=== PATIENT | male | born 1940 | race Caucasian/White ===

== ENCOUNTER → 2016-08-28 | Outpatient (CLI) | payer MEDICARE, BC ==
[~2016-08-28] MED LIST: ASPI81TA82 PO; ATOR20TA15 PO; DIOV160T3 PO; FISH120014 PO; FISH300C2 PO; GABA300C5 PO; LACTCAP8 PO; LEVO50TA4 PO; LIPI20TA OR; MECL25 PO; MULT1TAB84 PO; PRIL20CA9 PO; PROT40TA PO; TAB-TAB PO; VALS1TAB65 PO
--- NOTE | 2016-08-28 10:19 | RSPPFT ---
DATE OF PROCEDURE: 08/28/16 COMMENTS: VOLUMES DYNAMIC: FVC and FEV1 normal. STATIC: TLC, RV and VTG normal. FLOWS: FEV1% normal; FEF 25-75 mildly reduced. DIFFUSION: Mildly reduced. FLOW VOLUME LOOP: Mild terminal airflow obstruction. IMPRESSION: Mild obstructive ventilatory defect with a mild reduction in diffusion and minimal change post-bronchodilator.
== END ==
LOC: HRSP 07:50
PROVIDERS: ATTEND Internal Medicine
DX: J44.9 Chronic obstructive pulmonary disease, unspecified (principal)
CPT/HCPCS: 94060; 94620; 94726; 94729

== ENCOUNTER → 2016-09-04 | Outpatient (CLI) | payer MEDICARE, BC ==
[2016-09-04 10:51] LABS: APTT (PATIENT) 27.8 SEC (24.3-30.1); HEMATOCRIT 46.9 % (39.0-51.0); MEAN CELL VOLUME 91.9 FL (80.0-100.0); MEAN CORPUSCULAR HEMOGLOBIN 31.2 PG (27.0-34.0); MEAN CORPUSCULAR HGB CONC 33.9 % (32.0-36.0); PLATELET COUNT 129 TH/MM3 (150-450); PROTHROMBIN TIME - PATIENT 11.1 SEC (9.8-11.6); RED CELL DISTRIBUTION WIDTH 14.9 % (11.6-17.2); REVIEW FLAG FINAL; WHITE BLOOD COUNT 5.5 TH/MM3 (4.0-11.0)
[2016-09-04 11:11] LABS: BICARBONATE 28.8 MEQ/L (21.0-32.0); POTASSIUM 4.1 MEQ/L (3.5-5.1)
--- NOTE | 2016-09-05 13:11 | EKG ---
Date Performed: 09/04/2016 Time Performed: 10:15:23 PTAGE: 76 years EKG: Sinus rhythm WITH MARKED SINUS ARRHYTHMIA BORDERLINE ECG Compared to prior tracing no significant change PREVIOUS TRACING : 11/13/1997 07.55 DOCTOR: Jarek Renner Interpretating Date/Time 09/05/2016 13:09:42
== END ==
LOC: CPRE 09:45
PROVIDERS: ATTEND Internal Medicine
DX: Z01.810 Encounter for preprocedural cardiovascular examination (principal); Z01.812 Encounter for preprocedural laboratory examination; R91.1 Solitary pulmonary nodule
CPT/HCPCS: 36415; 80048; 85027; 85610; 85730; 93005

== ENCOUNTER → 2016-09-08 | Day surgery (SDC) | payer MEDICARE, BC ==
--- NOTE | 2016-09-04 10:23 | MB ---
cc: LACEY SANDOVAL,SEBASTIÁN Ibrahim MD DATE OF CONSULTATION 08/25/2016 HISTORY Mr. Jordan is a 76-year-old white male whom I saw on August 25 for an abnormal CAT scan. He had an upper endoscopy in June and since then has had a dry nonproductive cough. No fever, no purulent sputum. He requested a chest x-ray because of the persistence of the cough which was abnormal and then a CT scan was performed on August 21 at [facility]. He has a 2.7 cm spiculated nodule in the left upper lobe, possibly the lingular subsegment very suspicious in appearance. He has a small nodule in the right upper lobe indeterminate. He also has emphysematous changes on the CT. No significant lymphadenopathy is noted. The patient continues to have a mild nonproductive cough that is actually somewhat improved, may have nothing to do with the specific lesion we are seeing since it was after his endoscopy but he certainly had no hemoptysis, chest pain or purulent sputum with this. He does admit to dyspnea on exertion gradually progressive over the last few years. He is a former smoker of one to two packs per day for about 40 years. He quit smoking 10 years ago. PAST MEDICAL HISTORY 1. He had a melanoma on his back five years ago; no evidence of recurrence. 2. He has Crowder's esophagus for which he underwent the recent endoscopy. He has had that for 10 years; that is currently controlled. 3. He has had an arthroscopic surgery on the right knee back in the . 4. A vasectomy in the 1970s. 5. Two back surgeries more recently for vertebral compressions. 6. He also has chronically low platelets, although he says they usually run 100,000-130,000 and he has had no bleeding problems with those with his surgeries. 7. Cholecystectomy. No prior cardiovascular history, diabetes, hypertension or stroke. ALLERGIES ASPIRIN - Does not tolerate large doses of aspirin, maybe because of the platelets. MEDICATIONS 1. Levothyroxine. 2. Omeprazole. 3. Valsartan. 4. A statin. 5. Gabapentin. 6. A multiple vitamin. FAMILY HISTORY Father in a plane crash at 59. Mother of congestive heart failure at 72. Actually he is adopted and those are his adoptive parents. He really has no awareness of his biological family. He does have one son who is a physician, lives in [facility]. He is in good health. SOCIAL HISTORY Originally from [facility]. Was in the [employer] for about 6 years. Worked for the [employer] for 25 or 30 years and is now retired. . Drinks occasional vodka, occasional beer, not more than once a week. He has a dog at home. REVIEW OF SYSTEMS Weight is stable. Appetite is fine. No anginal chest pain or chronic edema. Currently no reflux symptoms related to his Crowder's, no significant musculoskeletal complaints and again, despite the fact he apparently has this low platelet count for sometime, he has never had a bleeding complication related to a procedure on a spontaneous abnormal bleeding. PHYSICAL EXAMINATION VITAL SIGNS: 124/80, pulse 74, temperature is 95, respiratory rate 18, sat 98% on room air. HEENT: Sclerae anicteric. Pharynx is clear. NECK: Neck veins are flat. No adenopathy in the neck or supraclavicular regions. CHEST: Completely clear. No wheezes or rales. No congestion. HEART: Regular rhythm. No harsh murmur. No audible S3. ABDOMEN: Soft, nontender. He does have 1+ pretibial edema. No cyanosis or clubbing but he does have arthritic changes in his hands, probably degenerative. IMAGING STUDIES CT scan is reviewed. He has a left midlung central lesion suspicious for malignancy; it is spiculated. DISCUSSION This lesion, in light of the prior smoking history, is highly suspicious for malignancy. We have discussed the various options and I would like to do pulmonary functions before we proceed with a biopsy. He has agreed to a bronchoscopic approach initially recognizing that we may not have a yield in which case further testing would be necessary. I have discussed the procedure and explained it to him in simple terms so that he understands what it involves. We have discussed potential complications including although not limited to anesthetic problems, bleeding or pneumothorax. Again, if the procedure was nondiagnostic, we would need to proceed but I think this is the best first step given the fairly proximal location of the lesion. Further diagnostic and/or therapeutic intervention will depend on the results of this study. R. Lacey Sandoval MD RSW/MAYLIN /11:05 AM /10:21 AM
[~2016-09-08] VITALS: Ht 175.3 cm; Wt 101.0 kg
[~2016-09-08] MED LIST changes: +*RESP: ALBUTEROL 2.5 MG/3 ML NEB (PRN) PERIprocedural Use ONLY NEB ONE; -ASPI81TA82 PO; +DEXAMETHASONE SOD PHOS 4 MG/ML VIAL ONE; -DIOV160T3 PO; +DO NOT ADM ANY ANTICOAGULANT DRUGS XX PRN; +EPINEPHrine HCL (1:1000) 1 MG/ML VIAL ONE; +FAMOTIDINE 20 MG/2 ML VIAL ONE; -FISH300C2 PO; +INSULIN HUMAN REGULAR 1,000 UNITS/10 ML VIAL SQ PRN; +LACTATED RINGER'S 1000 ML IV SCH; +LIDOCAINE HCL 2% 50 ML VIAL ONE; +LIDOCAINE HCL 4% PF 5 ML AMP ONE; +LIDOCAINE VISCOUS 2% SOLN 15 ML UDC ONE; -LIPI20TA OR; -MECL25 PO; +METOPROLOL TARTRATE 25 MG TAB PO PRN; +MIDAZOLAM HCL 2 MG/2 ML VIAL ONE; +PROPOFOL 200 MG/20 ML AMP IV ONE; -PROT40TA PO; +RESP: ALBUTEROL 2.5 MG/3 ML NEB (PRN) NEB; +RESP: ALBUTEROL CONC 2.5 MG/0.5 ML NEB INH SCH; +RESP: LIDOCAINE HCL 4% PF 5 ML NEB NEB SCH; +SODIUM CHLOR 0.9% 1000 ML INJ 1,000 ML IV SCH; +SODIUM CHLORID 0.9% 500 ML IV SCH; -TAB-TAB PO
[2016-09-08 13:12] VITALS: BP 142/77; PULSE 73; RESP 18; TEMP 98.9; O2SAT 96
--- NOTE | 2016-09-08 16:21 | RADRPT ---
EXAM DATE/TIME: 09/08/2016 16:00 [facility] COMPARISON: No previous studies available for comparison. INDICATIONS : Status post brochoscopy. MEDICAL HISTORY : None. SURGICAL HISTORY : None. ENCOUNTER: Initial ACUITY: 1 day PAIN SCORE: 10 LOCATION: Bilateral chest FINDINGS: A single AP portable view of the chest was obtained and demonstrates mild cardiomegaly. A hazy mild o pacity at both lung bases. Chronic appearing interstitial change. There is no effusion. Bony thorax i s intact overlying electrocardiogram leads. Atherosclerotic changes are present in the aorta. There i s no evidence of pneumothorax. CONCLUSION: 1. No evidence of pneumothorax status post bronchoscopy. 2. Patchy opacity at both lung bases. 3. Chronic appearing interstitial change. Homero Real MD on September 08, 2016 at 16:18 Board Certified Radiologist. This report was verified electronically.
[2016-09-08 17:10] VITALS: BP 146/88; PULSE 74; RESP 18; TEMP 97.7; O2SAT 97
--- NOTE | 2016-09-09 23:30 | MP ---
cc: SEBASTIÁN RODRIGUEZ MD, R. STEVEN M.D. DATE OF SURGERY: 09/08/2016 PROCEDURE: Bronchoscopy INDICATIONS: Left lingular mass. PROCEDURE NOTE: After informed consent was obtained, the patient underwent diagnostic bronchoscopy with LMA anesthesia. Examination of the larynx was unremarkable. Examination of the trachea down to the mainstem bronchi was unremarkable. Examination of the right main stem bronchus, right upper, middle and lower lobe orifices was entirely unremarkable without endobronchial pathology. Examination of the left main stem bronchus down to the takeoff of the left ___ lobe was normal. Examination of the left lower lobe and its subsegments were normal. No endobronchial pathology. Examination of the left upper lobe and the lingula entirely unremarkable. The subsegments of the lingula were carefully inspected and no endobronchial pathology was noted. Using fluoroscopic guidance the lesion could not be absolutely clearly identified. It was seen to overlie both the superior and inferior limbs of the lingula so this area was washed extensively submitted for cultures and cytology. Several bronchial brushings were then obtained again with fluoroscopic guidance to the subsegments of the lingula and submitted for cytology. SUMMARY This is a normal endoscopic exam. No visible lesion was noted. Washings and multiple brushings were submitted for cytology and culture. He tolerated the procedure well without apparent complication. RMD BRONSON Navarro/MAYTE /2:54 PM /11:23 PM
== END | disposition home or self-care (01) ==
LOC: HSDC 11:47
PROVIDERS: ATTEND Internal Medicine
DX: R91.8 Other nonspecific abnormal finding of lung field (principal)
CPT/HCPCS: 00520; 31622; 71010; 76000; 87015; 87070; 87102; 87116; 87205; 87206; 88112; 88305; 94664; J0171; J1100; J2250; J7120; J7613

== ENCOUNTER → 2016-09-21 | Outpatient (CLI) | payer MEDICARE, BC ==
[~2016-09-21] MED LIST changes: -*RESP: ALBUTEROL 2.5 MG/3 ML NEB (PRN) PERIprocedural Use ONLY NEB ONE; -DEXAMETHASONE SOD PHOS 4 MG/ML VIAL ONE; -DO NOT ADM ANY ANTICOAGULANT DRUGS XX PRN; -EPINEPHrine HCL (1:1000) 1 MG/ML VIAL ONE; -FAMOTIDINE 20 MG/2 ML VIAL ONE; -INSULIN HUMAN REGULAR 1,000 UNITS/10 ML VIAL SQ PRN; -LACTATED RINGER'S 1000 ML IV SCH; -LIDOCAINE HCL 2% 50 ML VIAL ONE; -LIDOCAINE HCL 4% PF 5 ML AMP ONE; -LIDOCAINE VISCOUS 2% SOLN 15 ML UDC ONE; -METOPROLOL TARTRATE 25 MG TAB PO PRN; -MIDAZOLAM HCL 2 MG/2 ML VIAL ONE; -PROPOFOL 200 MG/20 ML AMP IV ONE; -RESP: ALBUTEROL 2.5 MG/3 ML NEB (PRN) NEB; -RESP: ALBUTEROL CONC 2.5 MG/0.5 ML NEB INH SCH; -RESP: LIDOCAINE HCL 4% PF 5 ML NEB NEB SCH; -SODIUM CHLOR 0.9% 1000 ML INJ 1,000 ML IV SCH; -SODIUM CHLORID 0.9% 500 ML IV SCH
[2016-09-21 10:25] LABS: AUTOMATED NEUTROPHIL # 4.1 TH/MM3 (1.8-7.7); BASOPHIL % 0.5 % (0.0-2.0); EOSINOPHIL # 0.2 TH/MM3 (0-0.4); HEMATOCRIT 47.7 % (39.0-51.0); HEMO FLAGS DIFF FINAL; LYMPH % 25.5 % (9.0-44.0); LYMPHOCYTE # 1.7 TH/MM3 (1.0-4.8); MONO % 8.5 % (0.0-8.0); NEUT % 62.5 % (16.0-70.0); PLATELET COUNT 137 TH/MM3 (150-450); RED BLOOD COUNT 5.24 MIL/MM3 (4.50-5.90); RED CELL DISTRIBUTION WIDTH 14.6 % (11.6-17.2); WHITE BLOOD COUNT 6.6 TH/MM3 (4.0-11.0)
== END ==
LOC: CPRE 09:18
PROVIDERS: ATTEND Internal Medicine
DX: Z01.812 Encounter for preprocedural laboratory examination (principal); R91.1 Solitary pulmonary nodule
CPT/HCPCS: 36415; 85025

== ENCOUNTER 2016-09-22 11:19 | Day surgery (SDC) | payer MEDICARE, BC ==
--- NOTE | 2016-09-18 08:26 | MB ---
cc: SEBASTIÁN RODRIGUEZ MD DATE OF CONSULTATION: 09/17/2016 REASON FOR CONSULTATION: This is for an outpatient bronchoscopy being scheduled for next Wednesday. HISTORY Mr. Jordan is a 76-year-old white male whom I first saw on August [address] scan. He has a 2-3 cm irregular lesion in the lingula that appears to be malignant. He has over an 80 pack-year smoking history although he quit in 2007 and underlying emphysema, although his pulmonary functions are actually only mildly reduced. On September 08 I bronchoscoped him but was unable to visualize this abnormality. We did blind brushings and washings from the left upper lobe, but they were all negative. Cytologies were negative and all cultures were negative. I saw him back in the office and we reviewed the available options. Since his original bronchoscopy. We have new technology using a navigational system and ultrasound which will very likely increase the yield for biopsying this lesion. As I told him I am concerned about this being malignant. We either need to consider repeat bronchoscopy or surgery. However, he also has a small right upper lobe lesion and if in fact he goes to surgery. I would certainly consider a PET CT before that was done. Currently no new symptoms, a very mild cough but no progressive dyspnea. No hemoptysis. No chest pain. PAST MEDICAL HISTORY 1. Had a melanoma on his back 5 years ago certainly no local recurrence of that. 2. He has a history of Crowder's esophagus currently asymptomatic. 3. He has had arthroscopic surgery on the right knee 4. A vasectomy in the 1970s 5. Surgeries for vertebral compression fractures as well. 6. Platelets are chronically low but above 100,000. He has had no bleeding history and had no bleeding related to the brush biopsies at the previous bronchoscopy. 7. Also a prior cholecystectomy. 8. No significant prior cardiovascular disease. ALLERGIES Intolerant of ASPIRIN which he believes is probably due to the fact that he has relatively low platelet counts. MEDICATIONS 1. Thyroid 2. Omeprazole 3. Valsartan 4. Atorvastatin 5. Gabapentin 6. Multiple vitamin FAMILY HISTORY: Not changed. SOCIAL HISTORY: Has not changed. Rarely drinks alcohol. PHYSICAL EXAMINATION: VITAL SIGNS: 97 degrees, blood pressure 130/76, pulse 68, Respirations 18, sat 92% on room air. HEAD, EYES, EARS, NOSE, AND THROAT: sclerae anicteric. Pharynx is clear. NECK: Neck veins are flat. CHEST: The chest is entirely clear. No wheezes or rales. HEART: Regular rhythm, no harsh murmur, no edema or cyanosis. ASSESSMENT AND PLAN: Mr. Jordan has a spiculated nodular density in the left upper lobe and a very small lesion in the right upper lobe more nondescript. The lesion in the left certainly is highly suspicious for malignancy. After thoroughly reviewing the options with him. He elects to proceed with a second bronchoscopy, utilizing newer technology which should increase our yield on a definitive diagnosis. Unfortunately as I explained to him today it is not 100% and we may not get an answer in which case I would consider PET CT and then possible surgery. We have discussed the procedure which he is familiar with from two weeks ago potential complications including bleeding or pneumothorax, less likely anesthetic complication. After thoroughly reviewing this he agrees to proceed. Further diagnostic and/or therapeutic intervention will depend on the results of this study. R. MD BRONSON Guzman/peri /3:51 PM /8:25 AM
[~2016-09-22] VITALS: Ht 176.5 cm; Wt 100.9 kg
[~2016-09-22 11:19] MED LIST changes: +NEOSTIGMINE 3 MG/3 ML SYR IV ONE; +PHENYLEPH/NS 1000 MCG/10 ML SYR IV ONE; +PROPOFOL 200 MG/20 ML AMP IV ONE
[2016-09-22 12:08] VITALS: BP 155/81; PULSE 59; RESP 20; TEMP 98.2; O2SAT 97
[2016-09-22] MEDS ORDERED: LACTATED RINGER'S 1000 ML IV SCH (12:30)
[2016-09-22] MEDS ORDERED: SODIUM CHLORID 0.9% 500 ML IV SCH (12:30)
[2016-09-22] MEDS ORDERED: METOPROLOL TARTRATE 25 MG TAB PO PRN (12:30)
[2016-09-22] MEDS ORDERED: SODIUM CHLOR 0.9% 1000 ML INJ 1,000 ML IV SCH (12:30)
[2016-09-22] MEDS ORDERED: INSULIN HUMAN REGULAR 1,000 UNITS/10 ML VIAL SQ PRN (12:30)
[2016-09-22] MEDS ORDERED: RESP: ALBUTEROL 2.5 MG/3 ML NEB (SCH) NEB (13:15)
[2016-09-22] MEDS ORDERED: RESP: LIDOCAINE HCL 4% PF 5 ML NEB NEB SCH (13:15)
[2016-09-22] MEDS ORDERED: fentaNYL CITRATE 250 MCG/5 ML AMP ONE (14:29)
--- NOTE | 2016-09-22 14:45 | RADRPT ---
EXAM DATE/TIME: 09/22/2016 13:39 [facility] COMPARISON: No previous studies available for comparison. INDICATIONS : Pre op to bronchoscopy. RADIATION DOSE: 5.85 CTDIvol (mGy) MEDICAL HISTORY : Cardiovascular disease. Hypertension. Skin cancer. Barretts esophagus. SURGICAL HISTORY : Cholecystectomy. ENCOUNTER: Initial ACUITY: 1 day PAIN SCALE: 0/10 LOCATION: chest TECHNIQUE: Volumetric scanning of the chest was performed using inspiration and expiration protocols. The study is performed using fiduciary markers for virtual bronchoscopy. Using automated exposure control and adjustment of the mA and/or kV according to patient size, radiation dose was kept as low as reasonabl y achievable to obtain optimal diagnostic quality images. FINDINGS: LUNGS: There is spiculated nodule in the lingula measuring 2.0 x 2.7 cm. There is a 1.3 x 1.3 cm nodule in t he lateral right upper lobe. Severe emphysematous changes. Bullous changes in the upper lobes. PLEURAE: There is no pleural thickening or pleural effusion. MEDIASTINUM: The heart and great vessels demonstrate no acute abnormality. There is no mediastinal or hilar lymph adenopathy. AXILLAE: Within normal limits. No lymphadenopathy. MUSCULOSKELETAL: Within normal limits for patient age. MISCELLANEOUS: The visualized upper abdominal organs demonstrate no acute abnormality. CONCLUSION: 1. Spiculated nodule in the lingula measuring 2.0 x 2.7 cm. 2. Nodule in the lateral right upper lobe measures 1.3 x 1.3 cm. 3. Severe emphysema without infiltrate. Ramez Gaitan MD on September 22, 2016 at 14:31 Board Certified Radiologist. This report was verified electronically.
[2016-09-22] MEDS ORDERED: RESP: ALBUTEROL 2.5 MG/3 ML NEB (PRN) NEB (16:00)
[2016-09-22] MEDS ORDERED: DO NOT ADM ANY ANTICOAGULANT DRUGS XX PRN ×2 (16:06→16:45)
--- NOTE | 2016-09-22 16:44 | RADRPT ---
EXAM DATE/TIME: 09/22/2016 16:12 [facility] COMPARISON: CHEST SINGLE AP, September 08, 2016, 16:00. INDICATIONS : Post Bronchoscopy MEDICAL HISTORY : None. SURGICAL HISTORY : Bronchoscopy ENCOUNTER: Initial ACUITY: 1 day PAIN SCORE: 0/10 LOCATION: Bilateral chest FINDINGS: A single view of the chest demonstrates persistent diffuse interstitial lung markings throughout the lungs. Rounded density overlies the left infrahilar region unchanged. The cardiomediastinal contours are unremarkable. Osseous structures are intact. CONCLUSION: Diffuse interstitial lung disease with a rounded density overlying the lower aspect of the left hilum . Sam Alegria MD on September 22, 2016 at 16:41 Board Certified Radiologist. This report was verified electronically.
[2016-09-22 17:00] VITALS: BP 127/64; PULSE 68; RESP 18; TEMP 97.6; O2SAT 90
[2016-09-22 17:15] VITALS: BP 130/61; PULSE 68; RESP 16; O2SAT 92
[2016-09-22 17:45] VITALS: BP 116/80; PULSE 68; RESP 18; O2SAT 92
--- NOTE | 2016-09-22 23:28 | MP ---
cc: Tenzin SANDOVAL M.D. DATE OF SURGERY 09/22/16 PROCEDURE Bronchoscopy INDICATION Left perihilar mass. PROCEDURE IN DETAIL After informed consent was obtained, the patient underwent diagnostic bronchoscopy with general anesthesia. Examination of the mid to distal trachea was normal. Examination of the right upper lobe, right middle and lower lobes revealed some scattered secretions but otherwise clear. No endobronchial pathology. Examination of the left main stem bronchus, left upper lobe lingula and lower lobe orifices revealed no specific endobronchial pathology. Utilizing navigational direction, the lesion was identified in the inferior segment of the left lower lobe. Once the lesion had been specifically located, washings, several brushings and three transbronchial biopsies were obtained from the area of the lesion. These were submitted for culture, cytology and pathology. There was minimal bleeding during the procedure and none at the end of the procedure. He tolerated the procedure well without apparent complication and a chest x-ray is pending at this time. MD BRONSON Cohen/ /5:09 PM /11:18 PM
== END 2016-09-22 18:06 | disposition home or self-care (01) ==
LOC: HSDC 11:19 → HRIP 12:20 → HSDC 18:06
PROVIDERS: ATTEND Internal Medicine
DX: C34.12 Malignant neoplasm of upper lobe, left bronchus or lung (principal); R91.1 Solitary pulmonary nodule; I10 Essential (primary) hypertension; I25.10 Atherosclerotic heart disease of native coronary artery without angina pectoris; C34.10 Malignant neoplasm of upper lobe, unspecified bronchus or lung; J43.9 Emphysema, unspecified; Z85.820 Personal history of malignant melanoma of skin; Z87.891 Personal history of nicotine dependence; Z90.49 Acquired absence of other specified parts of digestive tract
CPT/HCPCS: 00520; 31623; 31628; 71010; 71250; 76000; 87015; 87070; 87102; 87116; 87205; 87206; 88112; 88305; 88341; 88342; 94664; J2370; J2710; J3010; J7613; 88307

== ENCOUNTER → 2016-10-15 | Outpatient (CLI) | payer MEDICARE, BC ==
[~2016-10-15] MED LIST changes: -NEOSTIGMINE 3 MG/3 ML SYR IV ONE; -PHENYLEPH/NS 1000 MCG/10 ML SYR IV ONE; -PROPOFOL 200 MG/20 ML AMP IV ONE
[2016-10-15 13:13] LABS: BASOPHIL % 0.4 % (0.0-2.0); EOSINOPHIL # 0.3 TH/MM3 (0-0.4); EOSINOPHIL % 3.6 % (0.0-4.0); HEMATOCRIT 47.1 % (39.0-51.0); HEMO FLAGS DIFF FINAL; LYMPH % 31.2 % (9.0-44.0); LYMPHOCYTE # 2.3 TH/MM3 (1.0-4.8); MEAN CELL VOLUME 92.2 FL (80.0-100.0); MEAN CORPUSCULAR HEMOGLOBIN 30.2 PG (27.0-34.0); MEAN CORPUSCULAR HGB CONC 32.8 % (32.0-36.0); MONO % 10.5 % (0.0-8.0); NEUT % 54.3 % (16.0-70.0); PLATELET COUNT 134 TH/MM3 (150-450); RED BLOOD COUNT 5.11 MIL/MM3 (4.50-5.90); RED CELL DISTRIBUTION WIDTH 14.3 % (11.6-17.2); WHITE BLOOD COUNT 7.4 TH/MM3 (4.0-11.0)
[2016-10-15 13:23] LABS: APTT (PATIENT) 28.4 SEC (24.3-30.1); PROTHROMBIN TIME - PATIENT 11.3 SEC (9.8-11.6)
== END ==
LOC: CLAB 12:32
PROVIDERS: ATTEND Internal Medicine
DX: C34.90 Malignant neoplasm of unspecified part of unspecified bronchus or lung (principal); R91.1 Solitary pulmonary nodule
CPT/HCPCS: 36415; 85025; 85610; 85730

== ENCOUNTER 2016-10-20 10:12 | Day surgery (SDC) | payer MEDICARE, BC ==
[~2016-10-20] VITALS: Ht 177.8 cm; Wt 100.9 kg
[2016-10-20] VITALS (7 sets, daily range): BP systolic 134–163; BP diastolic 68–92; PULSE 60–67; RESP 18–20; TEMP 97.6–97.7; O2SAT 92–97
[2016-10-20] MEDS ORDERED: SODIUM CHLOR 0.9% 1000 ML IV SCH (11:00)
[2016-10-20] MEDS ORDERED: LIDOCAINE 1%/EPINEPHrine 1:100,000 SOLN 20 ML VIAL ONE (12:15)
[2016-10-20] MEDS ORDERED: fentaNYL CITRATE 250 MCG/5 ML AMP ONE (12:25)
[2016-10-20] MEDS ORDERED: MIDAZOLAM HCL 5 MG/5 ML VIAL ONE (12:25)
--- NOTE | 2016-10-20 14:39 | RADRPT ---
EXAM DATE/TIME: 10/20/2016 13:58 [facility] COMPARISON: CT NEEDLE BIOPSY LUNG, RIGHT, October 20, 2016, 12:47. CHEST SINGLE AP, September 22, 2016, 16:12. INDICATIONS : Post lung biopsy. MEDICAL HISTORY : Hypertension. Carcinoma, lung. SURGICAL HISTORY : Previous lung biopsy. ENCOUNTER: Initial ACUITY: 1 day PAIN SCORE: 0/10 LOCATION: Right chest FINDINGS: A single portable expiration view the chest shows no pneumothorax. No effusion. Chronic interstitial changes noted. Nodularity involving the lateral right upper lobe again noted. Heart is normal in size . Scoliotic and degenerative spine. CONCLUSION: No pneumothorax following lung biopsy. Deny Ferrell Jr., MD on October 20, 2016 at 14:36 Board Certified Radiologist. This report was verified electronically.
[2016-10-20] MEDS ORDERED: oxyCODONE/ACETAMINOPHEN 5 MG/325 MG TAB PO PRN (15:00)
--- NOTE | 2016-10-20 16:11 | RADRPT ---
EXAM DATE/TIME: 10/20/2016 12:47 [facility] COMPARISON: No previous studies available for comparison. INDICATIONS : Right lung mass SEDATION TIME: 30 minutes BIOPSY SITE: Right lung MEDICATION(S): 1.) 4 mg midazolam (Versed) IV 2.) 200 mcg fentanyl (Sublimaze) IV DEVICE(S): 1.) 18 gauge Moody blunt needle 2.) 20 gauge Temno core biopsy needle MEDICAL HISTORY : Carcinoma, lung. SURGICAL HISTORY : Cholecystectomy ENCOUNTER: Initial ACUITY: 1 day PAIN SCORE: 0/10 LOCATION: Right chest A total of four core specimen(s) were obtained and sent to the laboratory for pathologic evaluation. PROCEDURE: 1. CT guided lung biopsy. 2. Conscious sedation with continuous EKG and oximetry monitoring. 3. EKG and oximetry remained stable throughout the procedure. Prior to the procedure informed consent was obtained. Any appropriate prior imaging studies were rev iewed. Using automated exposure control and adjustment of the mA and/or kV according to patient size, radiation dose was kept as low as reasonably achievable to obtain optimal diagnostic quality images. The site was prepped in a sterile fashion. Full sterile technique was used, including cap, mask, tera rile gloves and gown and a large sterile sheet. Hand hygiene and 2% chlorhexidine and/or betadine/al cohol prep was utilized per protocol for cutaneous antisepsis. The skin and subcutaneous tissues wer e infiltrated with local anesthetic solution. With CT guidance the previously identified target was localized. Biopsy was performed using the presc ribed needle as above. Adequate hemostasis was obtained with compression at the puncture site. Follow-up CT scan reveals no pneumothorax. Conscious sedation was performed with the prescribed dosages and duration as above in the presence of an independent trained radiology nurse to assist in the monitoring of the patient. EKG and oximetry remained stable throughout the procedure. The patient tolerated the procedure well and there were no complications. The patient was sent to Radiology Outpatient Unit in stable condition. CONCLUSION: Uncomplicated CT guided biopsy. Eleazar Pineda MD on October 20, 2016 at 16:09 Board Certified Radiologist. This report was verified electronically.
--- NOTE | 2016-10-20 16:48 | RADRPT ---
EXAM DATE/TIME: 10/20/2016 15:41 [facility] COMPARISON: CHEST EXPIRATION ONLY, October 20, 2016, 13:58. INDICATIONS : Evalute for pneumothorax. Post right lung biopsy. MEDICAL HISTORY : Cardiovascular disease. Hypertension. Skin cancer. Barretts esophagus. SURGICAL HISTORY : Cholecystectomy. ENCOUNTER: Subsequent ACUITY: 1 day PAIN SCORE: 0/10 LOCATION: Bilateral chest FINDINGS: Single frontal expiratory view of the chest. Patchy opacity of the left lung base unchanged. No evide nce of pneumothorax. CONCLUSION: No evidence of pneumothorax. Nahid Bhardwaj MD on October 20, 2016 at 16:46 Board Certified Radiologist. This report was verified electronically.
== END 2016-10-20 16:35 | disposition home or self-care (01) ==
LOC: HRAD 10:12 → HRIP 10:14 → HRAD 16:35
PROVIDERS: ATTEND Internal Medicine
DX: C34.92 Malignant neoplasm of unspecified part of left bronchus or lung (principal); R91.1 Solitary pulmonary nodule; I10 Essential (primary) hypertension; Z85.828 Personal history of other malignant neoplasm of skin
CPT/HCPCS: 32405; 71010; 77012; 88305; 88341; 88342; J2250; J3010

== ENCOUNTER 2017-01-27 11:58 | Inpatient (IN) | payer MEDICARE, BC ==
[~2017-01-27] VITALS: Ht 177.8 cm; Wt 100.5 kg
[2017-01-27 12:00] VITALS: BP 136/74; PULSE 84; RESP 18; TEMP 98.9; O2SAT 93
--- NOTE | 2017-01-27 12:13 | PD ---
Physical Exam Time Seen by Provider: 12:09 Narrative Pt presents to the ED for evaluation of cough for 3 weeks and two episodes of severe SOB with presyncope this morning. Hx of lung cancer. Significant SOB with exertion started today. Hx of radiation therapy, no chemotherapy. Denies fever or pain. Denies any hx of heart disease. States had a nuclear medicine stress test recently that was normal. Denies hx of PE or DVT, not on any anticoagulation. VSS. Oxygen saturation is a little low at 93%. Awaiting bed placement. Data Data Last Documented VS Vital Signs Date Time Temp Pulse Resp B/P Pulse Ox O2 Delivery O2 Flow Rate FiO2 01/27/17 12:00 98.9 84 18 136/74 93 Room Air MDM Supervised Visit with HANANE: Carmenza Silverio Jan 27, 2017 12:13
--- NOTE | 2017-01-27 13:06 | PD ---
HPI Chief Complaint: Respiratory Symptoms Time Seen by Provider: 13:06 Travel History International Travel<30 days: No Contact w/Intl Traveler<30days: No Traveled to known affect area: No History of Present Illness HPI 76 YO M with history of non small cell lung cancer presents to the ED for evaluation of shortness of breath. Patient states that he was working in the car's this morning when he had an episode where he felt as if he could not move air in or out of the lungs. He states that he sat down and this resolved but reoccurred just after resolution. He estimates the entire episode lasted 3 minutes. He endorses one-month history of nonproductive cough. States that he gets dizzy with episodes of coughing. He denies fever, chills, chest pain, palpitations, diaphoresis, nausea, vomiting, dysuria, edema of the lower extremities. The patient does not use oxygen at home. He states that he is undergone 2 rounds of radiation. He is followed by Dr. Ben Saldivar. PFSH Past Medical History Cancer: Yes (MELANOMA SKIN) Cardiovascular Problems: Yes (MINOR BLOCKAGE LEFT CAROTID) Diabetes: No Endocrine: No Genitourinary: No Hepatitis: No Hiatal Hernia: No Hypertension: Yes Immune Disorder: No Musculoskeletal: No Neurologic: Yes (PERMANENT NERVE DAMAGE RIGHT FOOT FROM WOUND) Psychiatric: Yes (ADHD) Reproductive: No Respiratory: Yes (LESION LEFT MID LUNG) Immunizations Current: Yes Thyroid Disease: Yes Triglycerides - High: Yes Past Surgical History Abdominal Surgery: Yes (CHOLECYSTECTOMY) AICD: No Cardiac Surgery: No Ear Surgery: No Endocrine Surgery: No Eye Surgery: No Genitourinary Surgery: Yes (VASECTOMY) Gynecologic Surgery: No Joint Replacement: No Oral Surgery: No Pacemaker: No Thoracic Surgery: No Other Surgery: Yes (VASECTOMY,KNEE,BACK) Social History Alcohol Use: Yes Tobacco Use: No Substance Use: No Allergies-Medications (Allergen,Severity, Reaction): Coded Allergies: Aspirin (Verified Allergy, Intermediate, NOSE BLEED, 01/27/17) CAN TAKE 81MG BUT CANNOT TAKE 325MG Reported Meds & Prescriptions Reported Meds & Active Scripts Active Reported Levothyroxine (Levothyroxine Sodium) 50 Mcg Tab 50 Mcg PO DAILY Valsartan 160 Mg Tab 160 Mg PO DAILY Probiotic (Lactobacillus Acidophilus) 1 Cap Cap 1 Cap PO DAILY Prilosec (Omeprazole) 20 Mg Cap 20 Mg PO DAILY Gabapentin 300 Mg Cap 300 Mg PO TID Fish Oil ([place]-3 Fatty Acids) 1,200 Mg Cap 1,200 Mg PO DAILY Multivitamin Adults (Multiple Vitamins W/ Minerals) 1 Tab 1 Tab PO DAILY Atorvastatin (Atorvastatin Calcium) 20 Mg Tab 20 Mg PO HS Review of Systems Except as stated in HPI: all other systems reviewed are Neg Physical Exam Narrative GENERAL: Well-nourished, well-developed white male in no acute distress.. SKIN: Focused skin assessment warm/dry. There is 3-4 cm abrasion on the anterior aspect of the right thigh. HEAD: Normocephalic. EYES: No scleral icterus. No injection or drainage. NECK: Supple, trachea midline. No JVD or lymphadenopathy. CARDIOVASCULAR: Regular rate and rhythm without murmurs, gallops, or rubs. RESPIRATORY: Breath sounds clear and equal bilaterally. No accessory muscle use. GASTROINTESTINAL: Abdomen soft, non-tender, nondistended. Active bowel sounds. MUSCULOSKELETAL: No cyanosis. Trace edema in the bilateral lower extremities. Homans sign negative bilaterally. BACK: Nontender without obvious deformity. No CVA tenderness. Data Data Last Documented VS Vital Signs Date Time Temp Pulse Resp B/P Pulse Ox O2 Delivery O2 Flow Rate FiO2 01/27/17 15:00 79 15 115/68 97 Nasal Cannula 2 01/27/17 12:00 98.9 Orders Complete Blood Count With Diff (01/27/17 13:15) Comprehensive Metabolic Panel (01/27/17 13:15) B-Type Natriuretic Peptide (01/27/17 13:15) D-Dimer (01/27/17 13:15) Act Partial Throm Time (Ptt) (01/27/17 13:15) Prothrombin Time / Inr (Pt) (01/27/17 13:15) Ckmb (Isoenzyme) Profile (01/27/17 13:15) Troponin I (01/27/17 13:15) Urinalysis - C+S If Indicated (01/27/17 13:15) Iv Access Insert/Monitor (01/27/17 13:15) Ecg Monitoring (01/27/17 13:15) Oximetry (01/27/17 13:15) Chest, Single Ap (01/27/17 13:15) Sodium Chloride 0.9% Flush (Ns Flush) (01/27/17 13:15) Piperacil-Tazo 4.5 Gm Premix (Zosyn 4.5 (01/27/17 14:15) Azithromycin Inj (Zithromax Inj) (01/27/17 14:15) CKMB (01/27/17 13:10) CKMB% (01/27/17 13:10) Ct Pulmonary Angiogram (01/27/17 14:16) Oxygen Administration (01/27/17 14:23) Electrocardiogram (01/27/17 14:26) Admit Order (Ed Use Only) (01/27/17 15:21) Labs Laboratory Tests Test 01/27/17 01/27/17 13:10 13:35 White Blood Count 6.0 TH/MM3 Red Blood Count 4.83 MIL/MM3 Hemoglobin 14.8 GM/DL Hematocrit 44.2 % Mean Corpuscular Volume 91.6 FL Mean Corpuscular Hemoglobin 30.6 PG Mean Corpuscular Hemoglobin 33.4 % Concent Red Cell Distribution Width 14.7 % Platelet Count 139 TH/MM3 Mean Platelet Volume 8.2 FL Neutrophils (%) (Auto) 64.3 % Lymphocytes (%) (Auto) 12.5 % Monocytes (%) (Auto) 16.2 % Eosinophils (%) (Auto) 6.4 % Basophils (%) (Auto) 0.6 % Neutrophils # (Auto) 3.8 TH/MM3 Lymphocytes # (Auto) 0.7 TH/MM3 Monocytes # (Auto) 1.0 TH/MM3 Eosinophils # (Auto) 0.4 TH/MM3 Basophils # (Auto) 0.0 TH/MM3 CBC Comment DIFF FINAL Differential Comment Prothrombin Time 11.2 SEC Prothromb Time International 1.0 RATIO Ratio Activated Partial 28.7 SEC Thromboplast Time D-Dimer Quantitative (PE/DVT) 0.65 MG/L FEU Sodium Level 140 MEQ/L Potassium Level 4.7 MEQ/L Chloride Level 106 MEQ/L Carbon Dioxide Level 28.2 MEQ/L Anion Gap 6 MEQ/L Blood Urea Nitrogen 13 MG/DL Creatinine 0.92 MG/DL Estimat Glomerular Filtration 80 ML/MIN Rate Random Glucose 96 MG/DL Calcium Level 10.3 MG/DL Total Bilirubin 0.8 MG/DL Aspartate Amino Transf 37 U/L (AST/SGOT) Alanine Aminotransferase 27 U/L (ALT/SGPT) Alkaline Phosphatase 132 U/L Total Creatine Kinase 109 U/L Creatine Kinase MB 1.4 NG/ML Troponin I LESS THAN 0.02 NG/ML B-Type Natriuretic Peptide 13 PG/ML Total Protein 6.9 GM/DL Albumin 3.2 GM/DL Urine Color YELLOW Urine Turbidity CLEAR Urine pH 6.5 Urine Specific [place] 1.015 Urine Protein NEG mg/dL Urine Glucose (UA) NEG mg/dL Urine Ketones NEG mg/dL Urine Occult Blood NEG Urine Nitrite NEG Urine Bilirubin NEG Urine Urobilinogen 2.0 MG/DL Urine Leukocyte Esterase NEG Urine RBC LESS THAN 1 /hpf Urine WBC 1 /hpf Urine Squamous Epithelial 2 /hpf Cells Urine Mucus FEW /lpf Microscopic Urinalysis Comment CULT NOT INDICATED MDM Medical Decision Making Medical Screen Exam Complete: Yes Emergency Medical Condition: Yes Differential Diagnosis Pneumonia versus PE versus CHF versus small cell lung CA versus other Narrative Course 76 YO M with history of non small cell lung cancer presents to the ED for evaluation of shortness of breath. Patient endorses an episode lasting approximately 3 minutes today where he felt as if he couldn't move air in or out of the lungs. Also complains of one-month history of nonproductive cough with associated dizziness. He denies fever, chills, chest pain, palpitations, diaphoresis, nausea, vomiting, dysuria, edema of the lower extremities. The patient does not use oxygen at home. He has undergone 2 rounds of radiation. Followed by Dr. Ben Saldivar. Vitals reviewed. O2 sat 93%, drops to 87% with coughing fits. Physical exam reveals a nontoxic-appearing white male in no acute distress. Chest CTAB. Trace edema in the bilateral lower extremities. Homans sign negative bilaterally. Patient was placed on 2 L O2 by nasal cannula. CBC: WBC 6.0, hemoglobin 14.8. CBC: Unremarkable. UA: No culture indicated. INR 1.0. BMP: 13 D-dimer 0.65. Cardiac enzymes negative 1. CXR: Patchy infiltrate in the left lower lobe, suspicious for pneumonia per radiology read. EKG: Rate 71, sinus rhythm. Normal intervals. Normal axis. No ST changes. Reviewed by Dr. Perez. CTA: Pending Patient was administered Zosyn and azithromycin IV. Discussed the results of the workup with the patient and the need for admission to the hospital secondary to pneumonia and hypoxia. The patient is agreeable to the plan. Call placed to [facility]. I spoke with Dr. Carmen who agrees to accept the patient to the medicine service. Please see medicine notes for disposition. Emmie Cano Jan 27, 2017 13:06
[2017-01-27] MEDS ORDERED: SODIUM CHLORIDE 0.9% FLUSH 10 ML FLUSH IVF PRN (13:15)
[2017-01-27 13:51] LABS: AUTOMATED NEUTROPHIL # 3.8 TH/MM3 (1.8-7.7); BASOPHIL % 0.6 % (0.0-2.0); EOSINOPHIL # 0.4 TH/MM3 (0-0.4); EOSINOPHIL % 6.4 % (0.0-4.0); HEMATOCRIT 44.2 % (39.0-51.0); HEMO FLAGS DIFF FINAL; LYMPH % 12.5 % (9.0-44.0); LYMPHOCYTE # 0.7 TH/MM3 (1.0-4.8); MEAN CELL VOLUME 91.6 FL (80.0-100.0); MEAN CORPUSCULAR HEMOGLOBIN 30.6 PG (27.0-34.0); MEAN CORPUSCULAR HGB CONC 33.4 % (32.0-36.0); MONO % 16.2 % (0.0-8.0); NEUT % 64.3 % (16.0-70.0); PLATELET COUNT 139 TH/MM3 (150-450); RED BLOOD COUNT 4.83 MIL/MM3 (4.50-5.90); RED CELL DISTRIBUTION WIDTH 14.7 % (11.6-17.2)
[2017-01-27 13:57] LABS: BLOOD, URINE NEG (NEG); GLUCOSE,URINE NEG (NEG); KETONE, URINE NEG (NEG); MUCUS URINE FEW /lpf (OCC); NITRITE,URINE NEG (NEG); PH, URINE 6.5 (5.0-8.5); SQUAMOUS EPITHELIAL CELL URINE 2 /hpf (0-5); URINE COLOR YELLOW (YELLW/STRAW)
[2017-01-27 13:59] LABS: COMMENT (UR) CULT NOT INDICATED; CULTURE IF INDICATED CULT NOT INDICATED
[2017-01-27 14:00] VITALS: BP 128/62; PULSE 68; RESP 15; O2SAT 98
--- NOTE | 2017-01-27 14:00 | RADRPT ---
EXAM DATE/TIME: 01/27/2017 13:25 [facility] COMPARISON: CHEST EXPIRATION ONLY, October 20, 2016, 15:41. CHEST SINGLE AP, September 22, 2016, 16:12. INDICATIONS : Short of breath. MEDICAL HISTORY : Carcinoma, lung. having radiation treatment for lung cancer. SURGICAL HISTORY : None. ENCOUNTER: Initial ACUITY: 1 day PAIN SCORE: 0/10 LOCATION: Bilateral chest FINDINGS: There is a new patchy infiltrate in the left lower lung. The right lung remains grossly clear. There are chronic vessels changes bilaterally. Heart size is stable. There are no pleural effusions. The yazan ny structures are stable. CONCLUSION: There is a new patchy infiltrate in the left lower lung suggestive of pneumonia. Yusef Valverde MD on January 27, 2017 at 13:57 Board Certified Radiologist. This report was verified electronically.
[2017-01-27 14:05] LABS: APTT (PATIENT) 28.7 SEC (24.3-30.1); PROTHROMBIN TIME - PATIENT 11.2 SEC (9.8-11.6)
[2017-01-27 14:10] LABS: ALT (GPT) 27 U/L (12-78)
[2017-01-27] MEDS ORDERED: AZITHROMYCIN INJ 500 MG in SODIUM CHLOR 0.9% 250 ML INJ 250 ML IV ONE (14:15)
[2017-01-27] MEDS ORDERED: PIPERACIL-TAZO 4.5 GM PREMIX 100 ML IV ONE (14:15)
[2017-01-27 14:17] LABS: ALKALINE PHOSPHATASE 132 U/L (45-117); ANION GAP 6 MEQ/L (5-15); AST (GOT) 37 U/L (15-37); BICARBONATE 28.2 MEQ/L (21.0-32.0); BLOOD UREA NITROGEN 13 MG/DL (7-18); CHLORIDE 106 MEQ/L (98-107); CREATINE KINASE 109 U/L (39-308); GLOMERULAR FILTRATION RATE 80 ML/MIN (>89); SODIUM (NA) 140 MEQ/L (136-145); TOTAL BILIRUBIN ADULT 0.8 MG/DL (0.2-1.0)
[2017-01-27 14:18] LABS: POTASSIUM 4.7 MEQ/L (3.5-5.1)
[2017-01-27 14:31] LABS: CKMB 1.4 NG/ML (0.5-3.6)
[2017-01-27 15:00] VITALS: BP 115/68; PULSE 79; RESP 15; O2SAT 97
[2017-01-27] MEDS ORDERED: IOHEXOL 350 MG/ML 10 ML VIAL (for RAD DIAG) IV ONE (15:49)
--- NOTE | 2017-01-27 16:12 | RADRPT ---
EXAM DATE/TIME: 01/27/2017 15:44 [facility] COMPARISON: CT THORAX W/O CONTRAST INSP/EXPIR, NAVIGATION, September 22, 2016, 13:39. CHEST SINGLE AP, January 27, 017, 13:25. INDICATIONS : Evaluate for embolism. IV CONTRAST: 75 cc Omnipaque 350 (iohexol) IV RADIATION DOSE: 23.27 CTDIvol (mGy) MEDICAL HISTORY : Carcinoma, lung. Melanoma skin cancer. SURGICAL HISTORY : Cholecystectomy. ENCOUNTER: Initial ACUITY: 1 day PAIN SCALE: 3/10 LOCATION: Bilateral chest TECHNIQUE: Volumetric scanning of the chest was performed using a pulmonary embolism protocol MIP images were re constructed. Using automated exposure control and adjustment of the mA and/or kV according to patien t size, radiation dose was kept as low as reasonably achievable to obtain optimal diagnostic quality images. DICOM format image data is available electronically for review and comparison. FINDINGS: PULMONARY ARTERIES: No filling defects are seen in the pulmonary arteries through the segmental level. LUNGS: There is diffuse bullous emphysema throughout both lung lopez. There is diffuse chronic interstitial lung disease. There is a new diffuse patchy infiltrate involving the left lower lung suggestive of p neumonia. There is a known spiculated mass measuring approximately 2.2 cm in the lingula segment of t he left lower lung. This is most likely patient's known lung cancer which appears to be about the giovanni e compared to the prior CT of 09/22/2016 PLEURAE: There is no pleural thickening or pleural effusion. MEDIASTINUM: There is good visualization of the great vessels of the middle mediastinum. No evidence of mediastin al or hilar adenopathy/mass. MUSCULOSKELETAL: Within normal limits for patient age. Bony degenerative changes. MISCELLANEOUS: The visualized upper abdominal organs demonstrate no acute abnormality. CONCLUSION: 1. No evidence of PE. 2. New diffuse patchy infiltrate left lower lung characteristic of pneumonia. 3. Prominent bullous emphysema and chronic interstitial lung disease characteristic of COPD 4. Known spiculated mass in the lingula segment of the left lung measured 2.2 cm. This is not signif icantly changed compared to the prior examination of 09/22/2016. Yusef Valverde MD on January 27, 2017 at 16:04 Board Certified Radiologist. This report was verified electronically.
[2017-01-27] MEDS ORDERED: LACTULOSE SYRUP 20 GM/30 ML CUP PO PRN (16:15)
[2017-01-27] MEDS ORDERED: NALOXONE HCL 0.4 MG/ML AMP IV PRN (16:15)
[2017-01-27] MEDS ORDERED: ONDANSETRON HCL 4 MG/2 ML VIAL IVP PRN (16:15)
[2017-01-27] MEDS ORDERED: SENNOSIDES 8.6 MG TAB PO PRN (16:15)
[2017-01-27] MEDS ORDERED: MAGNESIUM HYDROXIDE SUSP 30 ML CUP PO PRN (16:15)
[2017-01-27] MEDS ORDERED: BISACODYL 10 MG SUPP RECTAL PRN (16:15)
[2017-01-27] MEDS ORDERED: RESP: ALBUTEROL 2.5 MG/IPRATROPIUM 0.5 MG NEB (PRN) NEB (16:30)
--- NOTE | 2017-01-27 16:40 | HHI.HP ---
HPI [facility] Primary [facility] Physician Julius Dietrich DO Admission Diagnosis pneumonia, hypoxia Diagnoses: Chief Complaint: Cough, lightheadedness Travel History International Travel<30 Days: No Contact w/Intl Traveler <30 Da: No Traveled to Known Affected Are: No History of Present Illness Written by Anum Porras, acting as scribe for Dr. Carmen on 01/27/17 at 16:20. Patient is a 76-year-old male with primary medical history of non-small cell lung cancer with radiation, hypertension, hypothyroidism, HLD, Crowder's esophagus, who came in for evaluation of nonproductive cough 1 month associated with lightheadedness. Patient states that he is being followed by Dr. Saldivar and he had completed radiation last 11/201610 cycles and he is due to go back for a follow-up on the . Patient is not on home O2 but now has increasing shortness of breath with O2 sat decreasing. States he continues to have shortness of breath, nonproductive cough. Unable to tell whether he has fever or not but denies any chills, palpitations, headaches. Denies any abdominal pain, nausea, vomiting, diarrhea, constipation. Denies any dysuria. CT angiogram shows no evidence of PE. #2. New diffuse patchy infiltrate left lower lung characteristic of pneumonia. 3. Prominent bullous emphysema and chronic interstitial lung disease characteristic of COPD. 4. Known spiculated mass in the lingula segment of the left lung measured 2.2 cm. This is not significantly changed compared to the prior examination of 09/22/2016 Chest x-ray showed there is a new patchy infiltrate in the left lower lung suggestive of pneumonia. Review of Systems Except as stated in HPI: all other systems reviewed are Neg Past Family Social History Past Medical History History of lung cancer non-small cell History of radiation Melanoma HTN Hypothyroidism HLD Crowder esophagus Past Surgical History Cholecystectomy in 2013 Vasectomy Knee arthroscopy Back surgery with titanium spacer 2007 Reported Medications Reported Meds & Active Scripts Active Reported Levothyroxine (Levothyroxine Sodium) 50 Mcg Tab 50 Mcg PO DAILY Valsartan 160 Mg Tab 160 Mg PO DAILY Probiotic (Lactobacillus Acidophilus) 1 Cap Cap 1 Cap PO DAILY Prilosec (Omeprazole) 20 Mg Cap 20 Mg PO DAILY Gabapentin 300 Mg Cap 300 Mg PO TID Fish Oil ([place]-3 Fatty Acids) 1,200 Mg Cap 1,200 Mg PO DAILY Multivitamin Adults (Multiple Vitamins W/ Minerals) 1 Tab 1 Tab PO DAILY Atorvastatin (Atorvastatin Calcium) 20 Mg Tab 20 Mg PO HS Allergies: Coded Allergies: Aspirin (Verified Allergy, Intermediate, NOSE BLEED, 01/27/17) CAN TAKE 81MG BUT CANNOT TAKE 325MG Active Ordered Medications Current Medications Medications (Trade) Dose Ordered Sig/Gerry Route Start Time Stop Time Status Last Admin (NS Flush) 2 ml UNSCH PRN IVF 01/27/17 13:15 (Zofran Inj) 4 mg Q6H PRN IVP 01/27/17 16:15 (Narcan Inj) 0.4 mg UNSCH PRN IV 01/27/17 16:15 (Yecenia-Colace) 1 tab BID PO 01/27/17 21:00 (Milk Of Magnesia Liq) 30 ml Q12H PRN PO 01/27/17 16:15 (Senokot) 17.2 mg Q12H PRN PO 01/27/17 16:15 UNV (Dulcolax Supp) 10 mg DAILY PRN RECTAL 01/27/17 16:15 UNV (Lactulose Liq) 30 ml DAILY PRN PO 01/27/17 16:15 UNV Family History Unknown family medical history, patient is adopted Social History Lives with significant other. 4 beers per week Former smoker quit 8 years ago, 2 pack per day 30 years smoking history Denies illicit drug use Physical Exam Vital Signs Vital Signs Date Time Temp Pulse Resp B/P Pulse Ox O2 Delivery O2 Flow Rate FiO2 01/27/17 15:00 79 15 115/68 97 Nasal Cannula 2 01/27/17 14:30 97 Nasal Cannula 2 01/27/17 14:00 68 15 128/62 98 01/27/17 13:10 82 94 Room Air 01/27/17 12:00 98.9 84 18 136/74 93 Room Air Physical Exam GENERAL: This is a well-nourished, well-developed patient, in no apparent distress. SKIN: No rashes, ecchymoses or lesions. Cool and dry. HEAD: Atraumatic. Normocephalic. No temporal or scalp tenderness. EYES: Pupils equal round and reactive. Extraocular motions intact. No scleral icterus. No injection or drainage. ENT: Nose without bleeding. Throat without erythema. Uvula midline. Airway patent. NECK: Trachea midline. No JVD or lymphadenopathy. CARDIOVASCULAR: Regular rate and rhythm without murmurs, gallops, or rubs. RESPIRATORY: Diminished left base. Few rhonchi. GASTROINTESTINAL: Abdomen soft, non-tender, nondistended. Bowel sounds active 4. MUSCULOSKELETAL: Extremities without clubbing, cyanosis, or edema. No joint tenderness, effusion, or edema noted. No calf tenderness. NEUROLOGICAL: Awake and alert. Oriented to person, time, situation, place. Motor and sensory grossly within normal limits. Normal speech. Laboratory Laboratory Tests Test 01/27/17 01/27/17 13:10 13:35 White Blood Count 6.0 Red Blood Count 4.83 Hemoglobin 14.8 Hematocrit 44.2 Mean Corpuscular Volume 91.6 Mean Corpuscular Hemoglobin 30.6 Mean Corpuscular Hemoglobin 33.4 Concent Red Cell Distribution Width 14.7 Platelet Count 139 Mean Platelet Volume 8.2 Neutrophils (%) (Auto) 64.3 Lymphocytes (%) (Auto) 12.5 Monocytes (%) (Auto) 16.2 Eosinophils (%) (Auto) 6.4 Basophils (%) (Auto) 0.6 Neutrophils # (Auto) 3.8 Lymphocytes # (Auto) 0.7 Monocytes # (Auto) 1.0 Eosinophils # (Auto) 0.4 Basophils # (Auto) 0.0 CBC Comment DIFF FINAL Differential Comment Prothrombin Time 11.2 Prothromb Time International 1.0 Ratio Activated Partial 28.7 Thromboplast Time D-Dimer Quantitative (PE/DVT) 0.65 Sodium Level 140 Potassium Level 4.7 Chloride Level 106 Carbon Dioxide Level 28.2 Anion Gap 6 Blood Urea Nitrogen 13 Creatinine 0.92 Estimat Glomerular Filtration 80 Rate Random Glucose 96 Calcium Level 10.3 Total Bilirubin 0.8 Aspartate Amino Transf 37 (AST/SGOT) Alanine Aminotransferase 27 (ALT/SGPT) Alkaline Phosphatase 132 Total Creatine Kinase 109 Creatine Kinase MB 1.4 Troponin I LESS THAN 0.02 B-Type Natriuretic Peptide 13 Total Protein 6.9 Albumin 3.2 Urine Color YELLOW Urine Turbidity CLEAR Urine pH 6.5 Urine Specific [place] 1.015 Urine Protein NEG Urine Glucose (UA) NEG Urine Ketones NEG Urine Occult Blood NEG Urine Nitrite NEG Urine Bilirubin NEG Urine Urobilinogen 2.0 Urine Leukocyte Esterase NEG Urine RBC LESS THAN 1 Urine WBC 1 Urine Squamous Epithelial 2 Cells Urine Mucus FEW Microscopic Urinalysis Comment CULT NOT INDICATED Result Diagram: 01/27/17 1310 01/27/[address] Angiography 01/27/17 1416 Signed Impressions: Service Date/Time: Friday, January 27, 2017 15:44 - CONCLUSION: 1. No evidence of PE. 2. New diffuse patchy infiltrate left lower lung characteristic of pneumonia. 3. Prominent bullous emphysema and chronic interstitial lung disease characteristic of COPD 4. Known spiculated mass in the lingula segment of the left lung measured 2.2 cm. This is not significantly changed compared to the prior examination of 09/22/2016. Yusef Valverde MD Chest X-Ray 01/27/17 1315 Signed Impressions: Service Date/Time: Friday, January 27, 2017 13:25 - CONCLUSION: There is a new patchy infiltrate in the left lower lung suggestive of pneumonia. Yusef Valverde MD Assessment and Plan Problem List: (1) Hypothyroidism ICD Code: E03.9 Status: Chronic (2) Pneumonia ICD Code: J18.9 Status: Acute (3) Non-small cell lung cancer ICD Code: C34.90 Status: Chronic (4) Acute respiratory failure with hypoxia ICD Code: J96.01 Status: Acute Assessment and Plan Patient is a 76-year-old male with primary medical history of non-small cell lung cancer with radiation, hypertension, hypothyroidism, HLD, Crowder's esophagus, who came in for evaluation of nonproductive cough 1 month associated with lightheadedness. Hypoxic respiratory failure Pneumonia, community-acquired Non-small cell lung cancer R/O PE, ACS - CT angiogram shows no evidence of PE. 2. New diffuse patchy infiltrate left lower lung characteristic of pneumonia. 3. Prominent bullous emphysema and chronic interstitial lung disease characteristic of COPD. 4. Known spiculated mass in the lingula segment of the left lung measured 2.2 cm. This is not significantly changed compared to the prior examination of 09/22/2016 - Chest x-ray showed there is a new patchy infiltrate in the left lower lung suggestive of pneumonia. - Troponin 0.02, CK 109, CK-MB 1.4, BNP 13, d-dimer 0.65 - Check sputum culture, check urine legionella, check pneumococcal urinary antigen - Zosyn IV, azithromycin IV - DuoNeb's scheduled, and when necessary - O2 nasal cannula, maintaining O2 sat greater than 92% - patient is not on home O2 - Patient completed 10 radiation cycle. Reports left sided radiation. - Consult Dr. Saldivar 's input appreciated - Monitor respiratory status HTN HLD - Continue with home medication valsartan 160 mg daily - Continue atorvastatin 20 mg daily Hypothyroidism - Continue home medication levothyroxine DVT Prop Heparin Code Status Full Code Discussed Condition With Patient, significant other, nursing, ED attending This note was transcribed by esteban [Anum Porras]. I, Dr. Shadia Carmen personally performed the history, physical exam, and medical decision making; and confirmed the accuracy of the information in the transcribed note. Authenticated by Dr. Shadia Carmen on 01/27/17 at 18:31. Physician Certification 2 Midnight Certification Type: Admission for Inpatient Services Order for Inpatient Services The services are ordered in accordance with Medicare regulations or non- Medicare payer requirements, as applicable. In the case of services not specified as inpatient-only, they are appropriately provided as inpatient services in accordance with the 2-midnight benchmark. Estimated LOS (days): 2 days is the estimated time the patient will need to remain in the hospital, assuming treatment plan goals are met and no additional complications. Post-Hospital Plan: Home Anum Barr Jan 27, 2017 16:40 Shadia Carmen MD Jan 27, 2017 18:31
[2017-01-27 18:00] VITALS: BP 114/85; PULSE 76; RESP 20; TEMP 98.2; O2SAT 96
[2017-01-27] MEDS: GABAPENTIN 300 MG CAP PO SCH (18:00)
[2017-01-27 20:00] VITALS: BP 136/74; PULSE 68; RESP 18; TEMP 97.6; O2SAT 94
[2017-01-27] MEDS: DOCUSATE SODIUM 50 MG/SENNA 8.6 MG TAB PO SCH (21:00)
[2017-01-27] MEDS: ATORVASTATIN 20 MG TAB PO SCH (21:20)
[2017-01-27] MEDS: HEPARIN SODIUM - SQ 10,000 UNITS/ML VIAL SQ SCH (21:20)
[2017-01-27] MEDS: PIPERACIL-TAZO 3.375 GM PREMIX 50 ML IV SCH (21:22)
[2017-01-27] MEDS: RESP: ALBUTEROL 2.5 MG/IPRATROPIUM 0.5 MG NEB (SCH) NEB (21:25)
[2017-01-27 21:27] VITALS: O2SAT 96
[2017-01-27] MEDS ORDERED: TEMAZEPAM 7.5 MG CAP PO ONE (23:15)
[2017-01-28] VITALS (8 sets, daily range): BP systolic 123–154; BP diastolic 65–77; PULSE 73–88; RESP 16–18; TEMP 96.7–97.9; O2SAT 83–95
[2017-01-28] MEDS: PIPERACIL-TAZO 3.375 GM PREMIX 50 ML IV SCH ×2 (02:01→09:24)
[2017-01-28] MEDS ORDERED: guaiFENesin/CODEINE SYRUP 200 MG/20 MG/10 ML CUP PO PRN (02:15)
[2017-01-28] MEDS ORDERED: BENZONATATE 100 MG CAP PO PRN (02:15)
[2017-01-28] MEDS: LEVOTHYROXINE SODIUM 50 MCG TAB PO SCH (05:50)
[2017-01-28] MEDS: HEPARIN SODIUM - SQ 10,000 UNITS/ML VIAL SQ SCH ×3 (05:51→22:00)
[2017-01-28 06:36] LABS: AUTOMATED NEUTROPHIL # 2.8 TH/MM3 (1.8-7.7); BASOPHIL % 0.6 % (0.0-2.0); EOSINOPHIL # 0.5 TH/MM3 (0-0.4); HEMATOCRIT 41.6 % (39.0-51.0); LYMPH % 11.1 % (9.0-44.0); LYMPHOCYTE # 0.5 TH/MM3 (1.0-4.8); MEAN CELL VOLUME 91.2 FL (80.0-100.0); MEAN CORPUSCULAR HEMOGLOBIN 30.1 PG (27.0-34.0); MONO % 19.8 % (0.0-8.0); NEUT % 58.5 % (16.0-70.0); PLATELET COUNT 121 TH/MM3 (150-450); RED BLOOD COUNT 4.56 MIL/MM3 (4.50-5.90); RED CELL DISTRIBUTION WIDTH 14.7 % (11.6-17.2); WHITE BLOOD COUNT 4.8 TH/MM3 (4.0-11.0)
[2017-01-28 06:54] LABS: BICARBONATE 26.8 MEQ/L (21.0-32.0); POTASSIUM 3.8 MEQ/L (3.5-5.1)
[2017-01-28 07:16] LABS: HEMO FLAGS AUTO DIFF
[2017-01-28] MEDS: RESP: ALBUTEROL 2.5 MG/IPRATROPIUM 0.5 MG NEB (SCH) NEB ×3 (07:47→19:55)
[2017-01-28] MEDS: DOCUSATE SODIUM 50 MG/SENNA 8.6 MG TAB PO SCH ×2 (09:00→21:00)
--- NOTE | 2017-01-28 09:01 | MB ---
cc: NADYA CHARLES M.D. DATE OF CONSULTATION: January 28, [address] Vasquez. REASON FOR CONSULTATION Oncology consulted to render opinion regarding patient with lung cancer, admitted with shortness of breath. HISTORY OF PRESENT ILLNESS The patient is a very pleasant 76-year-old male recently diagnosed with synchronous stage I [id number] lung carcinoma. He completed stereotactic radiation to the lung lesion on December 22. He has always had chronic nonproductive cough. However over the last 1 month his cough was progressively getting worse. Yesterday while working in the garage he had a coughing spell and he could not breathe. He felt lightheaded. He came to the emergency room. CT angiogram did not show any pulmonary embolism. However, there was diffuse patchy infiltrates bilaterally, worse on the left side, suggestive for pneumonia. He is feeling better this morning. He denies any fever or chills. Denies any chest pain. Denies any nausea or vomiting, abdominal pain. Denies dysuria, hematuria. Denies any bone pain. Denies headache. Denies any focal numbness or weakness. PAST MEDICAL HISTORY 1. Bgw-[id number] lung carcinoma. 2. Chronic obstructive pulmonary disease. 3. Hypothyroidism. 4. Hyperlipidemia. 5. Hypertension. 6. Crowder's esophagus. PAST SURGICAL HISTORY 1. Cholecystectomy. 2. Vasectomy. 3. Knee arthroscopic surgery. 4. Back surgery. FAMILY HISTORY He is adopted. SOCIAL HISTORY He drinks occasionally. He quit tobacco about 8 years ago. He has about 60 pack-year smoking history. ALLERGIES ASPIRIN. CURRENT MEDICATIONS 1. Azithromycin. 2. Valsartan. 3. Protonix. 4. Levothyroxine. 5. Heparin. 6. Yecenia-Colace. 7. Lipitor. 8. Zosyn. 9. Gabapentin. 10. DuoNebs. REVIEW OF SYSTEMS CONSTITUTIONAL: Denies fever, chills, night sweat, weight loss. EYES: Denies any blurry vision, double vision. ENT: No mouth sores or voice changes. CARDIOVASCULAR: Denies chest pressure, palpitation. RESPIRATORY: As above. GI: Negative. : Negative. MUSCULOSKELETAL: Negative. HEMATOLOGY: Negative. ENDOCRINE: Negative. DERMATOLOGY: Negative. PSYCHIATRIC: Negative. NEUROLOGIC: Negative. PHYSICAL EXAMINATION VITAL SIGNS: Temperature 97.5, blood pressure 125/76, O2 saturation 95% on 2 liters nasal cannula. GENERAL: He is alert and oriented x3, in no acute distress. HEENT: Atraumatic, normocephalic. Pupils equal, round and reactive to light. Extraocular muscles intact. No scleral icterus. Oropharynx dry mucosa. No lesion or thrush, no mucositis. NECK: No thyromegaly. No palpable masses. LYMPHATIC: No palpable cervical, clavicular, axillary, inguinal lymph node. CARDIOVASCULAR: Regular, S1-S2. No murmur. LUNGS: Diffuse crackles and decreased breath sounds. No significant wheezing. ABDOMEN: Soft, nontender. I could not palpate liver or spleen. EXTREMITIES: No cyanosis, no clubbing or edema. No calf tenderness. BACK: No paravertebral tenderness. SKIN: No rash or petechiae. NEUROLOGIC: Exam nonfocal. LABORATORY DATA Laboratory data reviewed. ASSESSMENT 1. Hypoxemia and shortness of breath with nonproductive cough. He has chronic nonproductive cough but over the last month he has increased nonproductive cough. Yesterday he became acutely short of breath after a coughing spell. His CT angiogram did not show any pulmonary embolism. He has new diffuse patchy infiltrate in the left lower lung characteristic with pneumonia. There is also significant emphysematous changes and chronic interstitial lung disease characteristic of COPD. He completed stereotactic radiation to bilateral lung on December 22, 2016. I have reviewed his CT scan and I think his symptom is likely due to radiation pneumonitis, but we cannot totally rule out a pneumonia. He was started on antibiotics. I am going to discuss with Dr. Mcgill and have him review the CT also. I will start him on steroids for treatment of radiation pneumonitis. 2. Non-small cell lung cancer. He has synchronous stage I squamous cell carcinoma. He had a 2.6 cm left lung mass and 1.4 cm right lung mass. Biopsy showed squamous cell carcinoma. He completed stereotactic radiation on December 22, 2016. I have reviewed his CT. Did not appreciate the right lung mass. The left lung mass has also decreased in size. He appeared to have a response to treatment. 3. Chronic obstructive pulmonary disease. 4. Hypothyroidism. 5. Hypertension. 6. Hyperlipidemia. 7. Crowder's esophagus. RECOMMENDATIONS 1. I reviewed the CT and discussion with the patient as above. 2. Will start him on Solu-Medrol. 3. Will discuss with Dr. Mcgill. 4. Continue antibiotic pending culture. Thank you Dr. Porras for asking us to see this patient. MD RENEE Edwards/ROSARIO /8:05 AM /8:35 AM YANELIS
[2017-01-28 09:02] LABS: BANDS 4 % (0-6); BASOPHILS 1 % (0-2); EOSINOPHILS 8 % (0-4); METAMYELOCYTES 3 % (0-1); NEUTROPHIL # MANUAL DIFF 3.1 TH/MM3 (1.8-7.7); PLATELET ESTIMATE SMEAR LOW (NORMAL); PLATELET MORPHOLOGY NORMAL (NORMAL); POLYS (SEG NEUTROPHILS) 57 % (16-70); SCAN/DIFF FINAL DIFF MANUAL; WBC DIFF SAMPLE 100
[2017-01-28] MEDS: VALSARTAN 160 MG TAB PO SCH (09:23)
[2017-01-28] MEDS: GABAPENTIN 300 MG CAP PO SCH ×3 (09:23→17:59)
[2017-01-28] MEDS: methylPREDNISolone SOD SUCC 125 MG/2 ML VIAL IV PUSH SCH ×2 (09:24→21:00)
[2017-01-28] MEDS: PANTOPRAZOLE SOD 20 MG DELAYED RELEASE TAB PO SCH (09:36)
[2017-01-28] MEDS ORDERED: TEMAZEPAM 15 MG CAP PO PRN (10:00)
[2017-01-28] MEDS ORDERED: INFLUENZA VIRUS VACCINE (QUADRIVALENT) 0.5 ML SYR IM ONE (10:00)
--- NOTE | 2017-01-28 10:08 | HHI.PR ---
Subjective Remarks Follow up for non-small cell lung cancer s/p radiation, possible radiation pneumonitis. Patient is doing well. However, he continues to have dry cough. No fever, chills. He could not sleep much last night despite taking Restoril. Objective Vitals Vital Signs Date Time Temp Pulse Resp B/P Pulse Ox O2 Delivery O2 Flow Rate FiO2 01/28/17 08:00 97.7 83 16 136/70 83 01/28/17 07:48 95 Nasal Cannula 2.00 01/28/17 04:00 97.5 76 18 125/76 93 01/28/17 00:00 97.9 73 18 154/72 94 01/27/17 21:27 96 Nasal Cannula 2.00 01/27/17 20:00 97.6 68 18 136/74 94 01/27/17 18:00 98.2 76 20 114/85 96 01/27/17 15:00 79 15 115/68 97 Nasal Cannula 2 01/27/17 14:30 97 Nasal Cannula 2 01/27/17 14:00 68 15 128/62 98 01/27/17 13:10 82 94 Room Air 01/27/17 12:00 98.9 84 18 136/74 93 Room Air I/O 01/27/17 01/27/17 01/27/17 01/28/17 01/28/17 01/28/17 07:00 15:00 23:00 07:00 15:00 23:00 Intake Total 480 ml 480 ml Balance 480 ml 480 ml Intake Oral 480 ml 480 ml # Voids 2 2 Result Diagram: 01/28/17 0529 01/28/17 [address] Angiography 01/27/17 1416 Signed Impressions: Service Date/Time: Friday, January 27, 2017 15:44 - CONCLUSION: 1. No evidence of PE. 2. New diffuse patchy infiltrate left lower lung characteristic of pneumonia. 3. Prominent bullous emphysema and chronic interstitial lung disease characteristic of COPD 4. Known spiculated mass in the lingula segment of the left lung measured 2.2 cm. This is not significantly changed compared to the prior examination of 09/22/2016. Yusef Valverde MD Chest X-Ray 01/27/17 1315 Signed Impressions: Service Date/Time: Friday, January 27, 2017 13:25 - CONCLUSION: There is a new patchy infiltrate in the left lower lung suggestive of pneumonia. Yusef Valverde MD Objective Remarks GENERAL: AOX3, NAD SKIN: Warm and dry. HEAD: Normocephalic. EYES: No scleral icterus. No injection or drainage. NECK: Supple, trachea midline. No JVD or lymphadenopathy. CARDIOVASCULAR: Regular rate and rhythm without murmurs, gallops, or rubs. RESPIRATORY: Moderate air entry. Bibasilar crackles appreciated. No wheezing. GASTROINTESTINAL: Abdomen soft, non-tender, nondistended. MUSCULOSKELETAL: No cyanosis, or edema. BACK: Nontender without obvious deformity. No CVA tenderness. Procedures None. A/P Problem List: (1) Hypothyroidism ICD Code: E03.9 Status: Chronic (2) Pneumonia ICD Code: J18.9 Status: Acute (3) Non-small cell lung cancer ICD Code: C34.90 Status: Chronic (4) Acute respiratory failure with hypoxia ICD Code: J96.01 Status: Acute Assessment and Plan Patient is a 76-year-old male with primary medical history of non-small cell lung cancer with radiation, hypertension, hypothyroidism, HLD, Crowder's esophagus, who came in for evaluation of nonproductive cough 1 month associated with lightheadedness. Probable radiation pneumonitis Probable community acquired pneumonia - Will continue patient on abx - switch to Levaquin 750mg Qday X 7 days. - Oncology started Solu-medrol 60mg Q12hrs. - Will continue Robitussin with Codeine as well as Benzonatate for cough symptoms. - Hypertension - Hyperlipidemia - Hypothyroidism - Continue Valsartan 160mg Qday, Lipitor 20mg Qday, Levothyroxine 50mcg Qday. Full code. Heparin SQ. Discharge plan: Probable discharge within 1-2 days. Pedro Yusuf DO Jan 28, 2017 10:08 am
[2017-01-28] MEDS: ACETAMINOPHEN 325 MG TAB PO PRN (12:08)
[2017-01-28] MEDS ORDERED: AZITHROMYCIN INJ 250 MG in SODIUM CHLOR 0.9% 250 ML INJ 250 ML IV SCH (15:00)
--- NOTE | 2017-01-28 18:14 | EKG ---
Date Performed: 01/27/2017 Time Performed: 14:30:39 PTAGE: 76 years EKG: Sinus rhythm NORMAL ECG PREVIOUS TRACING : 09/04/2016 10.15 Compared to prior tracing no significant change DOCTOR: Clara Barajas Interpretating Date/Time 01/29/2017 09:19:58
[2017-01-28] MEDS: ATORVASTATIN 20 MG TAB PO SCH (22:40)
[2017-01-29] VITALS: BP 132/78; PULSE 78; RESP 18; TEMP 96.5; O2SAT 94
[2017-01-29 05:30] VITALS: BP 138/65; PULSE 64; RESP 18; TEMP 97.3; O2SAT 97
[2017-01-29] MEDS: HEPARIN SODIUM - SQ 10,000 UNITS/ML VIAL SQ SCH (06:00)
[2017-01-29] MEDS: LEVOTHYROXINE SODIUM 50 MCG TAB PO SCH (07:14)
[2017-01-29] MEDS: PANTOPRAZOLE SOD 20 MG DELAYED RELEASE TAB PO SCH (07:17)
[2017-01-29 08:25] VITALS: O2SAT 93
[2017-01-29] MEDS: RESP: ALBUTEROL 2.5 MG/IPRATROPIUM 0.5 MG NEB (SCH) NEB ×2 (08:26→13:55)
[2017-01-29 08:58] VITALS: BP 143/67; PULSE 68; RESP 18; TEMP 97.1; O2SAT 90
[2017-01-29] MEDS ORDERED: LEVOFLOXACIN 750 MG TAB PO SCH (09:00)
[2017-01-29] MEDS ORDERED: predniSONE 20 MG TAB PO SCH (09:00)
[2017-01-29] MEDS: GABAPENTIN 300 MG CAP PO SCH ×2 (09:09→13:00)
[2017-01-29] MEDS: VALSARTAN 160 MG TAB PO SCH (09:09)
[2017-01-29] MEDS: DOCUSATE SODIUM 50 MG/SENNA 8.6 MG TAB PO SCH (09:09)
[2017-01-29] MEDS ORDERED: OXYGENDME NAS.CANULA (09:52)
[2017-01-29] MEDS ORDERED: GUAISYP4 PO (10:16)
[2017-01-29] MEDS ORDERED: LEVA750T9 PO (10:16)
[2017-01-29] MEDS ORDERED: PRED20 PO (10:16)
[2017-01-29] MEDS ORDERED: VENTAER INH (10:19)
--- NOTE | 2017-01-29 10:19 | HHI.PR ---
Subjective Remarks Follow up for non-small cell lung cancer s/p radiation, possible radiation pneumonitis. Patient is doing well. No chest pain, shortness of breath, No fever , chills. Objective Vitals Vital Signs Date Time Temp Pulse Resp B/P Pulse Ox O2 Delivery O2 Flow Rate FiO2 01/29/17 08:58 97.1 68 18 143/67 90 01/29/17 05:30 97.3 64 18 138/65 97 01/29/17 00:00 96.5 78 18 132/78 94 01/28/17 21:00 96.7 82 18 123/70 92 01/28/17 19:55 95 Nasal Cannula 2.00 01/28/17 16:00 97.6 88 16 127/65 90 01/28/17 12:00 97.1 78 16 135/77 93 I/O 01/28/17 01/28/17 01/28/17 01/29/17 01/29/17 01/29/17 07:00 15:00 23:00 07:00 15:00 23:00 Intake Total 480 ml 1000 ml 600 ml 480 ml Output Total 0 ml Balance 480 ml 1000 ml 600 ml 480 ml Intake Oral 480 ml 800 ml 600 ml 480 ml IV Total 200 ml Output Stool Total 0 ml # Voids 2 6 2 Result Diagram: 01/28/17 0529 01/28/17 [address] Angiography 01/27/17 1416 Signed Impressions: Service Date/Time: Friday, January 27, 2017 15:44 - CONCLUSION: 1. No evidence of PE. 2. New diffuse patchy infiltrate left lower lung characteristic of pneumonia. 3. Prominent bullous emphysema and chronic interstitial lung disease characteristic of COPD 4. Known spiculated mass in the lingula segment of the left lung measured 2.2 cm. This is not significantly changed compared to the prior examination of 09/22/2016. Yusef Valverde MD Chest X-Ray 01/27/17 1315 Signed Impressions: Service Date/Time: Friday, January 27, 2017 13:25 - CONCLUSION: There is a new patchy infiltrate in the left lower lung suggestive of pneumonia. Yusef Valverde MD Objective Remarks GENERAL: AOX3, NAD SKIN: Warm and dry. HEAD: Normocephalic. EYES: No scleral icterus. No injection or drainage. NECK: Supple, trachea midline. No JVD or lymphadenopathy. CARDIOVASCULAR: Regular rate and rhythm without murmurs, gallops, or rubs. RESPIRATORY: Moderate air entry. Bibasilar crackles appreciated. No wheezing. GASTROINTESTINAL: Abdomen soft, non-tender, nondistended. MUSCULOSKELETAL: No cyanosis, or edema. BACK: Nontender without obvious deformity. No CVA tenderness. Procedures None. A/P Problem List: (1) Hypothyroidism ICD Code: E03.9 Status: Chronic (2) Pneumonia ICD Code: J18.9 Status: Acute (3) Non-small cell lung cancer ICD Code: C34.90 Status: Chronic (4) Acute respiratory failure with hypoxia ICD Code: J96.01 Status: Acute Assessment and Plan Patient is a 76-year-old male with primary medical history of non-small cell lung cancer with radiation, hypertension, hypothyroidism, HLD, Crowder's esophagus, who came in for evaluation of nonproductive cough 1 month associated with lightheadedness. Probable radiation pneumonitis Probable community acquired pneumonia - Will continue Levaquin 750mg Qday to complete total 7 days of abx. - Oncology started Solu-medrol 60mg Q12hrs and now switched to Prednisone 20mg BID. - Will continue Robitussin with Codeine as well as Benzonatate for cough symptoms. - Hypertension - Hyperlipidemia - Hypothyroidism - Continue Valsartan 160mg Qday, Lipitor 20mg Qday, Levothyroxine 50mcg Qday. Full code. Heparin SQ. Discharge patient to home Condition on discharge: Improved Heart healthy Diet as tolerated Ad Tiffany activity Rx written: - Levaquin 750mg Qday X 5 days - Prednisone 20mg BID X 5 days. - Robitussin AC - Albuterol inh. Follow-up with primary care physician as needed, Follow up with Dr. Saldivar in 1-2 weeks. Pedro Yusuf DO Jan 29, 2017 10:19 am
[2017-01-29] MEDS: ACETAMINOPHEN 325 MG TAB PO PRN (11:33)
[2017-01-29 12:31] VITALS: BP 131/75; PULSE 78; RESP 18; TEMP 97.5; O2SAT 92
--- NOTE | 2017-01-29 13:00 | PD.ONC.PN ---
Subjective Subjective Remarks Afebrile overnight. Patient eager to go home. Resting in chair next to bed in nad. Feeling well. Objective Data Date Time Temp Pulse Resp B/P Pulse Ox O2 Delivery O2 Flow Rate FiO2 01/29/17 12:31 97.5 78 18 131/75 92 01/29/17 09:30 2.00 01/29/17 08:58 97.1 68 18 143/67 90 01/29/17 08:25 93 Nasal Cannula 2.00 01/29/17 05:30 97.3 64 18 138/65 97 01/29/17 00:00 96.5 78 18 132/78 94 01/28/17 21:00 96.7 82 18 123/70 92 01/28/17 19:55 95 Nasal Cannula 2.00 01/28/17 16:00 97.6 88 16 127/65 90 01/29/17 01/29/17 01/29/17 07:00 15:00 23:00 Intake Total 480 ml Balance 480 ml Result Diagram: 01/28/1729 01/28/17528 Laboratory Results Laboratory Tests Test 01/28/17 18:35 Nasal Screen MRSA (PCR) MRSA NOT DETECTED Culture Results Microbiology Date/Time Procedure Status Source Growth 01/27/17 13:35 Legionella Antigen - Final Complete Urine Clean Catch PRESUMPTIVE NEGATIVE FOR LEGIONELLA P... 01/27/17 13:35 Streptococcus pneumoniae Antigen (M - Final Complete Urine Clean Catch PRESUMPTIVE NEGATIVE FOR STREPTOCOCCU... Administered Medications Medications (Trade) Dose Ordered Sig/Gerry Route PRN Reason Start Time Stop Time Status Last Admin Dose Admin Senna/Docusate Sodium (Yecenia-Colace) 1 tab BID PO 01/27/17 21:00 01/29/17 09:09 Atorvastatin Calcium (Lipitor) 20 mg HS PO 01/27/17 21:00 01/28/17 22:40 Gabapentin (Neurontin) 300 mg TID PO 01/27/17 18:00 01/29/17 09:09 Levothyroxine Sodium (Synthroid) 50 mcg DAILY@06 PO 01/28/17 06:00 01/29/17 07:14 Valsartan (Diovan) 160 mg DAILY PO 01/28/17 09:00 01/29/17 09:09 Pantoprazole Sodium (Protonix) 20 mg DAILY PO 01/28/17 09:00 01/29/17 07:17 Heparin Sodium (Porcine) (Heparin Inj) 5,000 units Q8HR SQ 01/27/17 22:00 01/28/17 14:50 Guaifenesin/ Codeine Phosphate (Robitussin Ac 200-20 Mg/10 ml Liq) 10 ml Q6H PRN PO cough 01/28/17 02:15 01/28/17 02:28 Benzonatate (Tessalon) 100 mg TID PRN PO cough 01/28/17 02:15 01/28/17 05:50 Levofloxacin (Levaquin) 750 mg DAILY PO 01/29/17 09:00 02/05/17 08:59 01/29/17 09:08 Acetaminophen (Tylenol) 650 mg Q4H PRN PO headache, fever 01/28/17 10:00 01/29/17 11:33 Objective Remarks GENERAL: elderly male upright in chair next to bed in [facility]. SKIN: Warm and dry. HEAD: Normocephalic. EYES: No injection or drainage. NECK: Supple, trachea midline. CARDIOVASCULAR: Regular rate and rhythm RESPIRATORY: Breath sounds equal bilaterally. No accessory muscle use. on 2L O2 via NC GASTROINTESTINAL: Abdomen soft, non-tender, nondistended. EXTREMITIES: No cyanosis MUSCULOSKELETAL: Adequate muscle tone. NEUROLOGICAL: No obvious focal deficit. Awake, alert, and oriented x3. Assessment/Plan Problem List: (1) Non-small cell lung cancer Status: Chronic Plan: -- has synchronous stage I squamous cell carcinoma. --had a 2.6 cm left lung mass and 1.4 cm right lung mass. --Biopsy showed squamous cell carcinoma. --completed stereotactic radiation on December 22, 2016 (2) Acute respiratory failure with hypoxia Status: Acute Plan: --multifactorial d/t xrt pneumonitis plus COPD/emphysema --on steroids Assessment 76y/o male with NSCLC admitted with dyspnea and cough Plan 1. clear for discharge 2. start Prednisone 20mg PO BID 3. follow up in clinic Attending Statement The exam, history, and the medical decision-making described in the above note were completed with the assistance of the mid-level provider. I reviewed and agree with the findings presented. I attest that I had a [id number] encounter with the patient on the same day, and personally performed and documented my assessment and findings in the medical record. SOB significantly improved. Cough improved. Switch to prednisone 20mg BID. Continue abx per primary team. Can be d/c from oncology standpoint. F/u oncology clinic. Alberta Baker Jan 29, 2017 13:00 Ben Saldivar MD Jan 29, 2017 13:52
== END 2017-01-29 15:55 | disposition home or self-care (01) | DRG 190 ==
LOC: NEPE 11:58 → NEDA 15:24 → HOCB 17:56
PROVIDERS: ADMIT Hospitalist; ATTEND Hospitalist
DX: J44.0 Chronic obstructive pulmonary disease with (acute) lower respiratory infection (principal); J96.01 Acute respiratory failure with hypoxia; J70.0 Acute pulmonary manifestations due to radiation; I10 Essential (primary) hypertension; Y84.2 Radiological procedure and radiotherapy as the cause of abnormal reaction of the patient, or of later complication, without mention of misadventure at the time of the procedure; F90.9 Attention-deficit hyperactivity disorder, unspecified type; E03.9 Hypothyroidism, unspecified; E78.5 Hyperlipidemia, unspecified; K22.70 Barrett's esophagus without dysplasia; Z85.118 Personal history of other malignant neoplasm of bronchus and lung; Z92.3 Personal history of irradiation; Z87.891 Personal history of nicotine dependence
CPT/HCPCS: 71010; 71275; 80048; 80053; 81001; 82550; 82552; 83880; 84484; 85007; 85025; 85027; 85379; 85610; 85730; 87449; 87641; 93005; 94620; 94640; 94664; 96374; 96375; J0456; J1644; J2543; J2930; J7050; Q9967

== ENCOUNTER → 2017-04-12 | Outpatient (CLI) | payer MEDICARE, BC ==
[~2017-04-12] MED LIST changes: +GUAISYP4 PO; +LEVA750T9 PO; +OXYGENDME NAS.CANULA; +PRED20 PO; +VENTAER INH
[2017-04-12 13:51] LABS: BLOOD GAS BASE EXCESS -1.5 mmol/L (-2-2); BLOOD GAS CARBOXYHEMOGLOBIN 1.5 % (0-4); BLOOD GAS HCO3 22 mmol/L (22-26); BLOOD GAS METHEMOGLOBIN 1.2 % (0-2); BLOOD GAS O2 HGB SATURATION 87 % (90-100); BLOOD GAS OXYGEN CONTENT 18.6 Vol % (12.0-20.0); BLOOD GAS PCO2 35 mmHg (38-42); BLOOD GAS PO2 67 mmHg (61-120); BLOOD GAS TOTAL HGB 15.2 G/DL (12.0-16.0)
[2017-04-12 13:52] LABS: CRITICAL VALUE YES; DRAW SITE RT RADIAL; FIO2 21 %; NUMBER OF ARTERIAL PUNCTURES 1; STAT NO; ULNAR PULSE PRESENT
--- NOTE | 2017-04-30 10:45 | RSPPFT ---
DATE OF PROCEDURE: 04/12/17 COMMENTS: VOLUMES DYNAMIC: FVC and FEV1 normal. STATIC: TLC, RV and FRC normal. FLOWS: FEV1% and FEF 25-75 normal. DIFFUSION; Moderately reduced. FLOW VOLUME LOOP: Normal configuration. IMPRESSION: There is a moderate reduction in diffusion but no significant airways obstruction and no significant restriction. No improvement post-bronchodilator. Clinical correlation is required.
== END ==
LOC: HRSP 13:16
PROVIDERS: ATTEND Internal Medicine
DX: J43.9 Emphysema, unspecified (principal)
CPT/HCPCS: 36600; 82805; 94620

== ENCOUNTER → 2017-10-13 | Outpatient (CLI) | payer MEDICARE, BC ==
--- NOTE | 2017-10-18 11:22 | RSPPFT ---
DATE OF PROCEDURE: 10/13/17 COMMENTS: VOLUMES DYNAMIC: FVC and FEV1 normal. STATIC: TLC and RV mildly reduced; FRC normal. FLOWS: FEV1% and FEF 25-75 normal. DIFFUSION: Mildly reduced. FLOW VOLUME LOOP: Normal configuration. IMPRESSION: Very mild restrictive ventilatory defect with reduction in diffusion. There is no significant airways obstruction and no significant improvement post-bronchodilator.
== END ==
LOC: PHRSP 07:02
PROVIDERS: ATTEND Internal Medicine
DX: J44.9 Chronic obstructive pulmonary disease, unspecified (principal)
CPT/HCPCS: 36600; 82805; 94060; 94618; 94726; 94729